=== PATIENT | female | born 1990 | race Caucasian/White ===

== ENCOUNTER 2022-01-17 04:04 | Emergency (ER) | payer OTHER ==
--- NOTE | 2022-01-17 05:41 | ED Physician Documentation ---
PD HPI HEENT - Stated complaint Stated Complaint: R EAR PX/SWELLING - Chief complaint Chief Complaint: Heent - History obtained from History obtained from: Patient - History of Present Illness Timing - onset: Yesterday Timing - details: Gradual onset Location: Left ear Improves: Nothing Worsens: Other (no exacerbating factors) Associated symptoms: Congestion. No: Fever Recently seen: Not recently seen - Additional information Additional information: c/o left ear pain since yesterday, associated with decreased hearing left ear. She has had 1-2 days of sinus congestion, mild sore throat, mild dry cough, used netti pot yesterday and since that time developed the left ear symptoms. Patient is 32 weeks . Denies fever. Review of Systems Constitutional: denies: Fever, Chills, Sweats Ears: reports: Loss of hearing (decreased (left ear)), Ear pain. denies: Drainage/discharge, Tinnitus/ringing Nose: reports: Congestion Throat: reports: Sore throat GI: denies: Abdominal Pain : reports: Now EGA (32 weeks) PD PAST MEDICAL HISTORY - Past Medical History Past Medical History: Yes Other Past Medical History: Dysautonomia. - Past Surgical History Past Surgical History: Yes General: Other - Present Medications Home Medications: Ambulatory Orders Medication Instructions Recorded Confirmed Azithromycin [Zithromax] 250 mg PO DAILY #4 tablet 01/17/22 Vit No.129/Iron/Folic 1 tab PO DAILY 01/17/22 01/17/22 [ One Daily Tablet] - Allergies Allergies/Adverse Reactions: Allergies Allergy/AdvReac Type Severity Reaction Status Date / Time No Known Drug Allergies Allergy Verified 01/17/22 04:18 - Social History Does the pt smoke?: No Smoking Status: Never smoker Does the pt drink ETOH?: No Does the pt have substance abuse?: No - Immunizations Immunizations are current?: Yes - POLST Patient has POLST: No PD ED PE NORMAL - Vitals Vital signs reviewed: Yes - General General: Alert and oriented X 3, No acute distress, Well developed/nourished - HEENT HEENT: Pharynx benign - Neck Neck: Supple, no meningeal sign - Respiratory Respiratory: No respiratory distress, Clear bilaterally PD ED PE EXPANDED - HEENT HEENT: L TM red, L TM bulging Results - Vitals Vitals: Vital Signs - 24 hr 01/17/22 01/17/22 04:16 06:28 Temperature 36.2 C L 36.9 C Heart Rate 88 75 Respiratory 18 14 Rate Blood Pressure 136/78 H 113/66 O2 Saturation 100 100 Oxygen O2 Source Room air PD MEDICAL DECISION MAKING - ED course Complexity details: considered differential, d/w patient ED course: Normal right TM but left TM is erythematous centrally and severe bulging. There is no evidence of rupture, but the extent of the outward bulging is such that I reviewed with patient the scenario of signs/symptoms of TM rupture and next steps to take (sudden ear discharge, sudden decreased hearing without complete hearing loss, rapid relief of pain; instructed to continue antibiotics, avoid any fluids getting into ear (such as placing cotton ball over the auditory canal when showering), follow up with PMD for reevaluation). She declines pain medication, will take tylenol as per label for pain . Zithromax given in ED and rx submitted to her pharmacy of choice. Departure - Departure Disposition: 01 Home, Self Care Clinical Impression: Otitis media Qualifiers: Otitis media type: suppurative Chronicity: acute Laterality: left Recurrence: non-recurrent Spontaneous tympanic membrane rupture: without spontaneous rupture Qualified Code(s): H66.002 - Acute suppurative otitis media without spontaneous rupture of ear drum, left ear Condition: Good Instructions: ED Otitis Media Acute Adult Follow-Up: JULIANNA ACUNA PA-C [Primary Care Provider] - Prescriptions: Azithromycin [Zithromax] 250 mg PO DAILY #4 tablet Comments: You were given a dose of antibiotic (azithromycin) and the prescription for the rest of the course of this antibiotic (four more days) has been electronically submitted to [facility] pharmacy in [place]. Forms: Activity restrictions Discharge Date/Time: 01/17/22 06:28
[2022-01-17] MEDS: AZITHROMYCIN 250 MG TABLET PO STA (06:19)
[2022-01-17 06:29] VITALS: BP 113/66
== END 2022-01-17 06:28 | disposition home or self-care (01) ==
LOC: ED 04:04
DX: O99.891 Other specified diseases and conditions complicating pregnancy (principal); H66.002 Acute suppurative otitis media without spontaneous rupture of ear drum, left ear; Z3A.32 32 weeks gestation of pregnancy
CPT/HCPCS: 99282; A9270